=== PATIENT | female | born 1940 | race Caucasian/White ===

== ENCOUNTER 2021-07-20 11:20 | Emergency (ER) | payer OTHER ==
[~2021-07-20] VITALS: Ht 160 cm; Wt 73.0 kg
[2021-07-20] MEDS ORDERED: LIDOCAINE 5% PATCH TOP SCH (12:15)
[2021-07-20] MEDS ORDERED: KETOROLAC 60MG/2ML VIAL IM ONE (12:15)
[2021-07-20 13:43] VITALS: BP 142/76
[2021-07-20] MEDS ORDERED: IBUP-2028 MT (14:06)
[2021-07-20] MEDS ORDERED: TOPUD PO (14:06)
[2021-07-20] MEDS ORDERED: LIDO1ADH82 TOP (14:08)
[2021-07-20] MEDS ORDERED: METH-653 MT (14:09)
== END 2021-07-20 14:50 | disposition home or self-care (01) ==
LOC: ER 11:20
DX: M25.552 Pain in left hip (principal); M51.36 Other intervertebral disc degeneration, lumbar region; Z91.81 History of falling
CPT/HCPCS: 72100; 73502; 96372; 99284; J1885